=== PATIENT | female | born 1955 ===

== ENCOUNTER → 2023-05-30 | Outpatient (CLI) | payer MEDICARE ==
[2023-06-03 12:10] LABS: HSV-1 DNA Positive (Negative); HSV-2 DNA Negative (Negative)
== END | disposition home or self-care (01) ==
LOC: LAB 10:00 → LAB SHORT 10:00
PROVIDERS: Physician Assistant Medical
DX: B02.9 Zoster without complications (principal); L81.4 Other melanin hyperpigmentation; L85.3 Xerosis cutis; L57.8 Other skin changes due to chronic exposure to nonionizing radiation; R23.3 Spontaneous ecchymoses; Z71.89 Other specified counseling
CPT/HCPCS: 87529; 87798